=== PATIENT | male | born 1980 | race Two or more races ===

== ENCOUNTER 2020-10-11 20:32 | Emergency (ER) | payer OTHER ==
[~2020-10-11] VITALS: Ht 167.6 cm; Wt 72.0 kg
[2020-10-11 21:20] VITALS: BP 143/105
== END 2020-10-11 23:55 | disposition left against medical advice (07) | DRG 313 ==
LOC: ED 20:32
DX: R07.89 Other chest pain (principal); V40.5XXA Car driver injured in collision with pedestrian or animal in traffic accident, initial encounter